=== PATIENT | female | born 1995 | race African-American/Black ===

== ENCOUNTER 2016-06-01 12:42 | Emergency (ER) | payer MEDICAID ==
[2016-06-01 13:40] LABS: SPECIFIC GRAVITY 1.015 (1.001-1.030); URINE BILIRUBIN NEGATIVE (NEGATIVE); URINE BLOOD 2+ (NEGATIVE); URINE GLUCOSE (UA) NEGATIVE (NEGATIVE); URINE LEUKOCYTE ESTERASE NEGATIVE (NEGATIVE); URINE NITRITE NEGATIVE (NEGATIVE); URINE PROTEIN NEGATIVE (NEGATIVE); URINE UROBILINOGEN NORMAL (0-1 mg/dl)
[2016-06-01 13:41] LABS: URINE APPEARANCE CLEAR; URINE COLOR YELLOW
[2016-06-01 13:43] LABS: HCG,QUALITATIVE URINE NEGATIVE
[2016-06-01 13:53] LABS: URINE RBC 0-1 /hpf
[2016-06-01 13:54] LABS: URINE BACTERIA 0; URINE EPITHELIAL CELLS 0 /hpf; URINE WBC NEG /hpf
== END 2016-06-01 14:32 | disposition home or self-care (01) ==
LOC: ED 12:42
DX: N93.8 Other specified abnormal uterine and vaginal bleeding (principal)